=== PATIENT | female | born 1990 | race Caucasian/White ===

== ENCOUNTER → 2017-05-10 | Outpatient (CLI) | payer BC ==
[~2017-05-10] MED LIST: MTR600X PO; OXYC-57 PO; PRENTAB26 PO
== END | disposition home or self-care (01) ==
LOC: C.PAPS 11:48
PROVIDERS: ATTEND Physician Assistant
DX: Z01.411 Encounter for gynecological examination (general) (routine) with abnormal findings (principal); R87.610 Atypical squamous cells of undetermined significance on cytologic smear of cervix (ASC-US)

== ENCOUNTER 2019-08-15 18:48 | Inpatient (IN) ==
[2019-08-15] MEDS ORDERED: LACTATED RINGER'S 1,000 ML IV PRN (19:32)
[2019-08-15] MEDS ORDERED: OXYTOCIN 30 UNITS/500 ML BAG IV PRN (19:32)
--- NOTE | 2019-08-15 19:42 | History & Physical Report ---
Date of Service August 15, 2019 Assessment & Plan (1) Normal labor: IUP at 38 + weeks in labor with history of precipitous labor & delivery. contractions have spaced out since arrival & cervix is still too posterior toAROM will walk for the next hour and recheck then History of Present Illness Primary Care Provider: Raven Fofana MD Patient is a 29 yo white female EDC 08/25/19 who presents at 38 + weeks with regular contractions and history of precipitous labor. no bloody show or aprom GBS (-) & blood type O (+) Allergies Allergy/AdvReac Type Severity Reaction Status Date / Time Penicillins Allergy Mild RASH Verified 08/15/19 19:04 Sulfa (Sulfonamide Allergy Mild RASH Verified 08/15/19 19:04 Antibiotics) sulfamethoxazole Allergy Mild HIVES Verified 08/15/19 19:04 trimethoprim Allergy Mild HIVES Verified 08/15/19 19:04 Home Medications Home Medications Medication Instructions Recorded Confirmed Type prenat.vits,papito,jqh-etml-zveas 1 tab PO DAILY 01/27/19 08/15/19 History Patient History Medical History screening for malformation using ultrasonics Varicella Family History Mother Thyroid disease Grandmother (Paternal) Thyroid disease Grandmother (Maternal) Thyroid disease Social History Preferred Language: Latvian Communication Ability: Effective 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 Beliefs That Will Affect Care: None marital status: marital status details: Derick Richmond (29) [phone] Current Living Situation: Spouse and Family Current Living Situation Comment: , [id number] and other children current occupational status: employed current occupation: [employer] Other Information That Helps Us Care for You: No Feels Safe at Home: Yes Safety Concerns: Feels Safe At This Time Smoking Status: Never smoker Second Hand Exposure: No ; Hx Alcohol Use: No Hx Substance Use: No Review of Systems All systems reviewed & are unremarkable except as noted in HPI & below Physical Exam Constitutional: WD/WN, vitals as above Respiratory: normal respiratory effort, lungs clear to auscultation Cardiovascular: RRR, no murmur, no edema Gastrointestinal (Abdomen): normal bowel sounds, soft, nontender, no hepatosplenomegaly Psychiatric: A+Ox3, euthymic affect Genitourinary: OB Exam Abdomen: + vertex and + regular contractions Manual OB Exam: + cervical dilation 6 cm, + cervical effacement 90% and + station -1 OB Exam Monitor Tracing: + external FHT monitor used, + external uterine monitor used, + category I and + normal FHT variability Results & Data Vital Signs (Past 12 Hours) Vital Signs Temp Pulse Resp BP 08/15/19 19:08 98.4 F 73 16 136/76 08/15/19 18:52 98.4 F 73 16 136/76 Coding Level of Care Code None Diagnoses Normal labor O80; Z37.9
[2019-08-15 19:51] LABS: Hematocrit (blood only) 38.2 % (37-47); Mean Corpuscular Hemoglobin 29.2 pg (25-34); Mean Corpuscular Volume 85.8 fL (80-100); Mean Platelet Volume 10.2 fL (7.4-10.4); Platelet Count 240 K/uL (130-400); RDW Coefficient of Variation 13.2 % (11.5-14.5); RDW Standard Deviation 41.3 fL (36.4-46.3); Red Blood Count 4.45 M/uL (4.2-5.4); White Blood Count 9.39 K/uL (4.8-10.8)
[2019-08-15] MEDS ORDERED: IBUPROFEN 600 MG TAB PO ONE (23:37)
--- NOTE | 2019-08-16 01:20 | Delivery Summary ---
DATE OF OPERATION: 08/15/2019 The patient is a 29-year-old 4, para 2-1-0-3, white female, EDC of 08/25/2019, who presented with regular contractions. She has a history of precipitous deliveries. She was 6 cm upon arrival in labor and delivery, but contractions had spaced out. The cervix was too posterior to rupture of membranes at that time. She walked for 2 hours and at this point the cervix was able to be reached. The membranes were ruptured for small amount of clear fluid. Forty minutes later, she was fully dilated and ready to push. She pushed effectively for 2 contractions for delivery of a viable female over intact perineum in a direct occiput posterior presentation. The rest of the delivered easily and was placed on the mother's abdomen for further attention and drying. There was spontaneous crying. The was moving all 4 limbs. The cord was clamped and cut after 1 minute of life. The placenta was expressed intact with a 3-vessel cord. This was an unmedicated . There was a first-degree perineal laceration that was bleeding. A 1% lidocaine was used to anesthetize the area. A 3-0 chromic was used to repair the laceration in the usual fashion. Estimated blood loss was 200 mL. bleeding was controlled with dilute Pitocin. I attest to the content of the Intraoperative Record and any orders documented therein. Any exception s are noted below.
[2019-08-16] MEDS ORDERED: SUPERCREAM 0.870% 15 GM JAR EXT PRN (06:25)
[2019-08-16] MEDS ORDERED: OXYCODONE/ACETAMINOPHEN 5mg/325mg TAB PO PRN (06:25)
[2019-08-16] MEDS ORDERED: HYDROCORTISONE ACETATE 25 MG SUPP PR PRN (06:25)
[2019-08-16] MEDS ORDERED: BENZOCAINE 20% AER SPR 82.5 GM CAN EXT PRN (06:25)
[2019-08-16] MEDS ORDERED: ACETAMINOPHEN 325 MG TAB PO PRN (06:25)
[2019-08-16] MEDS ORDERED: DIPHTHERIA/TETANUS/PERTUSSIS 0.5 ML SYR/VIAL IM ONE (06:25)
[2019-08-16] MEDS ORDERED: OXYTOCIN 30 UNITS/500 ML BAG IV PRN (06:25)
[2019-08-16] MEDS: IBUPROFEN 600 MG TAB PO PRN ×4 (06:43→21:01)
--- NOTE | 2019-08-16 07:13 | Obstetrical Progress Note ---
Date of Service August 16, 2019 Assessment & Plan (1) Encounter for care and examination after delivery: satisfactory progress continue current care plan Day #:: 1 Subjective Ambulation: ambulating normally Voiding: no voiding problems Passing Gas:: Yes Diet Tolerance:: regular diet Lochia:: Small Feeding Type:: breast feeding Review of Systems All systems reviewed & are unremarkable except as noted in HPI & below Physical Exam Constitutional WD/WN, vitals as above Psychiatric A+Ox3, euthymic affect Genitourinary OB Exam Abdomen: + fundal height Fundus: + firm and + relation to umbilicus (1 below) Results & Data Vital Signs (Past 12 Hours) Vital Signs Temp Pulse Pulse Resp BP BP 08/16/19 03:25 98.1 F 77 18 125/63 08/16/19 01:50 98.1 F 83 18 109/71 08/16/19 01:32 83 109/71 08/16/19 01:30 98.1 F 18 08/16/19 01:17 85 125/58 L 08/16/19 01:02 68 109/56 L 08/16/19 01:00 18 08/16/19 00:47 68 129/59 L 08/16/19 00:32 85 122/51 L 08/16/19 00:30 16 08/16/19 00:17 76 131/61 08/16/19 00:15 18 08/16/19 00:02 70 144/65 H 08/16/19 00:00 18 08/15/19 23:47 67 142/62 H 08/15/19 23:45 18 08/15/19 23:31 80 135/73 08/15/19 23:30 97.9 F 18 08/15/19 23:03 98.1 F 72 20 135/70
[2019-08-16] MEDS: DOCUSATE SODIUM 100 MG CAP PO SCH ×2 (07:38→21:01)
[2019-08-16] MEDS: PRENATAL VITAMIN 1 TAB PO SCH (07:38)
[2019-08-17 06:53] LABS: Hemoglobin 12.5 g/dL (12.0-16.0); Mean Corpuscular Hemoglobin 28.9 pg (25-34); Mean Corpuscular Hgb Conc 32.9 g/dL (32-36); Mean Corpuscular Volume 87.8 fL (80-100); Platelet Count 231 K/uL (130-400); RDW Coefficient of Variation 13.5 % (11.5-14.5); RDW Standard Deviation 43.7 fL (36.4-46.3); Red Blood Count 4.33 M/uL (4.2-5.4); White Blood Count 9.41 K/uL (4.8-10.8)
--- NOTE | 2019-08-17 07:36 | Obstetrical Progress Note ---
Date of Service August 17, 2019 Assessment & Plan (1) Encounter for care and examination after delivery: PPD#2 doing well. No concerns. Discharge instructions reviewed. RTO 6w. Subjective Ambulation: ambulating normally Voiding: no voiding problems Diet Tolerance:: regular diet Lochia:: Moderate Feeding Type:: breast feeding Review of Systems All systems reviewed & are unremarkable except as noted in HPI & below Physical Exam Constitutional WD/WN, vitals as above no acute distress Respiratory normal respiratory effort Cardiovascular Rate/Rhythm: regular rate and regular rhythm Gastrointestinal (Abdomen) Inspection/Auscultation: abdomen normal to inspection; abdomen not distended Percussion/Palpation: abdomen soft Genitourinary OB Exam Abdomen: + fundal height Fundus: + firm; not tender Results & Data Vital Signs (Past 12 Hours) Vital Signs Temp Pulse Resp BP 08/16/19 23:00 36.5 C 71 20 132/78 08/16/19 19:45 36.7 C 91 H 20 125/77
[2019-08-17] MEDS: DOCUSATE SODIUM 100 MG CAP PO SCH (09:26)
[2019-08-17] MEDS: PRENATAL VITAMIN 1 TAB PO SCH (09:26)
[2019-08-17] MEDS ORDERED: bisacodyL 5 MG TABEC PO SCH (20:00)
[2019-08-18] MEDS ORDERED: bisacodyL 10 MG SUPP PR PRN (07:00)
== END 2019-08-17 11:50 | disposition home or self-care (01) | DRG 807 ==
LOC: OPB 18:48 → 4S1 18:48 → 4S2 08-16 02:02

== ENCOUNTER 2020-08-03 02:02 | Inpatient (IN) ==
[2020-08-03] MEDS ORDERED: LACTATED RINGER'S 1,000 ML IV PRN (04:28)
[2020-08-03] MEDS ORDERED: OXYTOCIN 30 UNITS/500 ML BAG IV PRN ×2 (04:28→13:39)
[2020-08-03 04:57] LABS: Hematocrit (blood only) 37.8 % (37-47); Hemoglobin 12.8 g/dL (12.0-16.0); Mean Corpuscular Hemoglobin 28.8 pg (25-34); Mean Corpuscular Hgb Conc 33.9 g/dL (32-36); Mean Corpuscular Volume 84.9 fL (80-100); Mean Platelet Volume 10.1 fL (7.4-10.4); Platelet Count 244 K/uL (130-400); RDW Coefficient of Variation 14.2 % (11.5-14.5); RDW Standard Deviation 43.8 fL (36.4-46.3); Red Blood Count 4.45 M/uL (4.2-5.4); White Blood Count 10.77 K/uL (4.8-10.8)
--- NOTE | 2020-08-03 07:59 | History & Physical Report ---
Date of Service August 03, 2020 Assessment & Plan Admission and Anticipated Discharge Date Admission Date: August 03, 2020 IUP at 37 weeks in active labor will AROM when cervix more accessible planning unmedicated History of Present Illness Primary Care Provider: Raven Fofana MD Patient is a 30 yo white female EDC 08/22/20 who presents with regular contractions at 37 weeks that started last evening around midnight. No SPROM or bloody show. Patient has walked for several hours and now has made appreciable cervical change. GBS - negative. was complicated by prior delivery at 35 weeks. She has been on [place] this . Allergies Allergy/AdvReac Type Severity Reaction Status Date / Time Penicillins Allergy Mild RASH Verified 08/03/20 02:09 Sulfa (Sulfonamide Allergy Mild RASH Verified 08/03/20 02:09 Antibiotics) sulfamethoxazole Allergy Mild HIVES Verified 08/03/20 02:09 trimethoprim Allergy Mild HIVES Verified 08/03/20 02:09 Home Medications Medication Instructions Recorded Confirmed Type prenat.vits,papito,vie-nsrx-rnrad 1 tab PO DAILY 01/17/20 08/03/20 History Patient History Medical History screening for malformation using ultrasonics Encounter for care and examination after delivery Encounter for supervision of normal in multigravida, antepartum History of delivery, currently Normal labor Varicella Surgical History No pertinent past surgical history Family History Mother Thyroid disease Leiomyoma Grandmother (Paternal) Thyroid disease Grandmother (Maternal) Thyroid disease Diabetes Grandfather (Maternal) Diabetes Hypertension Denies family history of Ovarian cancer Prostate cancer Myocardial infarction Breast cancer Colorectal cancer Social History Smoking Status: Never smoker Second Hand Exposure: No; Hx Alcohol Use: No Hx Substance Use: No Preferred Language: Ukrainian Communication Ability: Effective Sap Pp Consultant Required: No Beliefs That Will Affect Care: None marital status: marital status details: Derick Richmond (30) [phone] Current Living Situation: Spouse and Family Current Living Situation Comment: lives with spouse, 4 children, dog current occupational status: employed current occupation: [employer] Other Information That Helps Us Care for You: No Feels Safe at Home: Yes Safety Concerns: Feels Safe At This Time Assistive Devices: None Review of Systems All systems reviewed & are unremarkable except as noted in HPI & below Physical Exam Constitutional: WD/WN, vitals as above Respiratory: normal respiratory effort, lungs clear to auscultation Cardiovascular: RRR, no murmur, no edema Gastrointestinal (Abdomen): normal bowel sounds, soft, nontender, no hepatosplenomegaly Psychiatric: A+Ox3, euthymic affect Genitourinary: OB Exam Abdomen: + vertex, + estimated weight (5-6 pounds) and + regular contractions (every 5 minutes) Manual OB Exam: + cervical dilation 5 cm, + cervical effacement 80% and + station (posterior) -1 OB Exam Monitor Tracing: + external FHT monitor used, + external uterine monitor used, + category I and + normal FHT variability Results & Data ([facility]) Vital Signs (Past 12 Hours) Vital Signs Temp Pulse Resp BP 08/03/20 07:30 18 08/03/20 07:08 98.4 F 18 08/03/20 07:06 82 124/65 08/03/20 05:55 98.1 F 93 H 18 127/66 08/03/20 02:15 85 134/69 08/03/20 02:10 98.1 F 18 Coding Level of Care Code None
[2020-08-03] MEDS ORDERED: SODIUM CHLORIDE 0.9% 250 ML IV PRN (08:00)
--- NOTE | 2020-08-03 12:49 | Labor Progress Brief Note ---
Date of Service August 03, 2020 Subjective Feeling ctx, increased pressure FHT Cat [address] [place] [address] Q 2-4 min SVE 6/90/0 AROM had been performed for clear fluid. Anticipate . Assessment & Plan Admission and Anticipated Discharge Date Admission Date: August 03, 2020 Results & Data ([facility]) Vital Signs (Past 12 Hours) Vital Signs Temp Pulse Resp BP 08/03/20 12:00 20 08/03/20 11:30 20 08/03/20 10:56 84 130/72 08/03/20 10:55 36.7 C 08/03/20 10:30 16 08/03/20 09:15 16 08/03/20 08:00 20 08/03/20 07:30 18 08/03/20 07:08 36.9 C 18 08/03/20 07:06 82 124/65 08/03/20 05:55 36.7 C 93 H 18 127/66 08/03/20 02:15 85 134/69 08/03/20 02:10 36.7 C 18 Coding Level of Care Code None
[2020-08-03] MEDS ORDERED: OXYTOCIN 10 UNITS/ML VIAL ONE (13:19)
--- NOTE | 2020-08-03 13:31 | Delivery Summary ---
Vaginal Delivery Summary Date of Service August 03, 2020 Vaginal Delivery Summary [facility] Vaginal Delivery Summary: Pre-delivery diagnoses: 30yo @ 37 2/7, h/o delivery at 35w Post-delivery diagnoses: same Procedure: spontaneous vaginal delivery Surgeon: Brandi Olmos DO Complications: none Findings: Viable male . Apgars: 7/9 . Weight pending, please see nursery records. Estimated blood loss: 300ml Description of delivery: The patient progressed to complete without anesthesia. She then began to push. She spontaneously vaginally delivered a viable from the cephalic presentation. The head delivered in KIERA position. Nuchal x 1, easily reduced. The anterior shoulder delivered, followed by the posterior shoulder, followed by the body. The baby was placed on mother's abdomen and a spontaneous cry was heard. The cord was doubly clamped and cut. Cord blood was obtained. The placenta was delivered spontaneously intact with a 3-vessel cord. The uterus and vagina were swept of clots and debris. IV pitocin was attempted - however, the IV was not infusing, therefore IM pitocin was given instead. The uterus became firm. The cervix, vagina, and perineum were inspected and a hemostatic first degree laceration was noted. Since this was hemostatic and small, I offered patient to avoid repair and she agreed. Excellent hemostasis was observed. The mother and baby are recovering in stable and good condition in the room. Sponge and instrument counts were correct x 2. Brandi Olmos DO FACOOG [facility] Vaginal Delivery Charge Vaginal Delivery Codes: 70900 global code for the antepartum, delivery, and post- Delivery Type Details: [facility]
[2020-08-03] MEDS ORDERED: BENZOCAINE 20% AER SPR 82.5 GM CAN EXT PRN (13:39)
[2020-08-03] MEDS ORDERED: OXYTOCIN 10 UNITS/ML VIAL IM ONE (13:39)
[2020-08-03] MEDS ORDERED: HYDROCORTISONE ACETATE 25 MG SUPP PR PRN (13:39)
[2020-08-03] MEDS ORDERED: DIPHTHERIA/TETANUS/PERTUSSIS 0.5 ML SYR/VIAL IM ONE (13:39)
[2020-08-03] MEDS ORDERED: oxyCODONE/ACETAMINOPHEN 5mg/325mg TAB PO PRN (13:39)
[2020-08-03] MEDS ORDERED: ACETAMINOPHEN 325 MG TAB PO PRN (13:39)
[2020-08-03] MEDS ORDERED: bisacodyL 10 MG SUPP PR PRN (13:39)
[2020-08-03] MEDS ORDERED: SUPERCREAM 0.870% 15 GM JAR EXT PRN (13:39)
[2020-08-03] MEDS: IBUPROFEN 600 MG TAB PO PRN ×2 (14:26→21:00)
[2020-08-03] MEDS: DOCUSATE SODIUM 100 MG CAP PO SCH (21:00)
[2020-08-04] MEDS: IBUPROFEN 600 MG TAB PO PRN ×5 (00:51→20:17)
[2020-08-04 06:49] LABS: Hematocrit (blood only) 36.4 % (37-47); Hemoglobin 12.3 g/dL (12.0-16.0)
--- NOTE | 2020-08-04 08:30 | Obstetrical Progress Note ---
Date of Service August 04, 2020 Assessment & Plan (1) Encounter for supervision of normal in multigravida, antepartum: PPD#1 doing well. Would like to go home. Reviewed discharge instructions. Followup in office in 6 weeks. Subjective Ambulation: ambulating normally Voiding: no voiding problems Diet Tolerance:: regular diet Lochia:: Moderate Feeding Type:: breast feeding PPD#1 doing well. No concerns. Review of Systems All systems reviewed & are unremarkable except as noted in HPI & below Physical Exam Constitutional WD/WN, vitals as above no acute distress Respiratory normal respiratory effort Cardiovascular Rate/Rhythm: regular rate and regular rhythm Gastrointestinal (Abdomen) Inspection/Auscultation: abdomen normal to inspection; abdomen not distended Percussion/Palpation: abdomen soft Genitourinary OB Exam Abdomen: + fundal height Fundus: + firm; not tender Results & Data ([facility]) Vital Signs (Past 12 Hours) Vital Signs Temp Pulse Resp BP BP Pulse Ox 08/04/20 07:30 36.3 C L 69 20 124/82 08/04/20 03:30 36.7 C 82 18 123/70 98 08/04/20 00:35 36.9 C 83 16 124/68 98
[2020-08-04] MEDS: PRENATAL VITAMIN 1 TAB PO SCH (08:43)
[2020-08-04] MEDS: DOCUSATE SODIUM 100 MG CAP PO SCH ×2 (08:43→20:18)
[2020-08-04] MEDS ORDERED: bisacodyL 5 MG TABEC PO SCH (20:00)
[2020-08-05] MEDS: IBUPROFEN 600 MG TAB PO PRN ×4 (00:48→17:56)
--- NOTE | 2020-08-05 05:40 | Obstetrical Progress Note ---
Date of Service <Chung Vazquez MD - Last Filed: 08/05/20 06:37> August 05, 2020 Assessment & Plan <Chung Vazquez MD - Last Filed: 08/05/20 06:37> (1) (spontaneous vaginal delivery): Mayra is a 30 y/o female who is now PPD #2 following at 37-2/7 - Feels well today. Eating well, voiding well, ambulating well. - Pain well controlled with ibuprofen 600mg Q4H PRN. - Routine PPD care -- promote OOB, ambulation - Baby may require further hyperbilirubinemia care today -- if this is the case, anticipate transfer to [facility] status - After discharge will have [address] Olmos Subjective <Chung Vazquez MD - Last Filed: 08/05/20 06:37> Mayra is a 30 y/o female who is now PPD #2 following at 37-06/09. Reports feeling well overall this morning. Endorses mild abdominal cramping & pain well managed on analgesics. Voiding without difficulty. Some persistent lochia with some improvement this morning. Breast feeding without difficulty. Review of Systems Denies shortness of breath, difficulty breathing, chest pain, palpitations, chest pressure. Denies breast pain. Denies dysuria. Denies headache or changes in vision. Physical Exam <Chung Vazquez MD - Last Filed: 08/05/20 06:37> General: Alert, oriented. No acute distress. Cardiac: Regular rate and rhythm, no murmurs/rubs/gallops. Respiratory: Clear to auscultation bilaterally a/p, no wheezes/rales/rhonchi. No increased work of breathing. Symmetrical chest rise. No respiratory distress. Abdomen: Soft, nontender, nondistended. Bowel sounds present. Uterus: Uterine fundus firm, palpable 2-3 cm below umbilicus. Lower Extremities: No lower extremity edema or swelling. No deep calf pain. Wilbur's negative bilaterally. Results & Data ([facility]) <Chung Vazquez MD - Last Filed: 08/05/20 06:37> Vital Signs (Past 12 Hours) Vital Signs Temp Pulse Resp BP Pulse Ox 08/05/20 00:40 36.8 C 73 20 131/76 98 08/04/20 20:35 36.6 C 78 18 127/80 98 <Brandi Olmos DO - Last Filed: 08/05/20 08:19> Co-Signing Physician Notes Resident Physician Supervision Note: I was present with Dr. Vazquez during the history and exam. I discussed the case with the resident and agree with the findings and plan as documented in the note. Any exceptions or clarifications are listed here: PPD#2 doing well. DC home. Instructions reviewed. Documented By: Brandi Olmos DO Resident Activity Tracking <Chung Vazquez MD - Last Filed: 08/05/20 06:37> Resident Involvement: Resident Care Provided Care Provided: Adult Hospital Medicine and OB Delivery
[2020-08-05] MEDS: PRENATAL VITAMIN 1 TAB PO SCH (07:38)
[2020-08-05] MEDS: DOCUSATE SODIUM 100 MG CAP PO SCH (07:38)
== END 2020-08-05 17:59 | disposition home or self-care (01) | DRG 807 ==
LOC: OPB 02:02 → 4S1 02:08 → 4S2 16:15